=== PATIENT | male | born 1950 | race Hispanic/Latino ===

== ENCOUNTER 2024-03-05 05:30 | Observation (INO) | payer OTHER ==
[2024-02-29 14:40] LABS: ALBUMIN 3.6 g/dL (3.5-5.0)
[2024-02-29 15:35] VITALS: BP 180/90; PULSE 74; RESP 19
[2024-03-05] VITALS (24 sets, daily range): BP systolic 92–139; BP diastolic 42–97; PULSE 71–102; RESP 14–20; O2SAT 98
[~2024-03-05] VITALS: Ht 160 cm; Wt 85.7 kg
[~2024-03-05 05:30] MED LIST: AEC81 PO; ATOR20TA65 PO; GABA-529 PO; IRBE75TA16 PO; MELO-106 PO; METF-444 PO; TAMS-1 PO; TYLENOL ARTHRITIS PO; VITAMIN D PO
[2024-03-05] MEDS: ACETAMINOPHEN 1,000 MG/100 ML VIAL IV ONE (06:39)
[2024-03-05] MEDS: FAMOTIDINE 20MG VIAL IV ONE (06:39)
[2024-03-05] MEDS ORDERED: ROPIVACAINE 0.5% 5MG/ML 30ML ONE ×2 (06:41→07:27)
[2024-03-05] MEDS ORDERED: PROPOFOL 10 MG/ML 20ML VIAL IV ONE (06:48)
[2024-03-05] MEDS: 0.9%NACL 1000ML 1,000 ML IV ONE (06:48)
[2024-03-05] MEDS ORDERED: ROCURONIUM BROMIDE 10MG/1ML 5ML VL ONE (06:48)
[2024-03-05] MEDS: CEFAZOLIN SODIUM 2 GM VIAL ONE (06:48)
[2024-03-05] MEDS ORDERED: LIDOCAINE PF 100MG/5ML (2%) SYRINGE 5ML ONE (06:48)
[2024-03-05] MEDS ORDERED: FENTANYL CITRATE PF 50 MCG/1 ML 2ML VIAL ONE (06:49)
[2024-03-05] MEDS: CEFAZOLIN SODIUM 2 GM VIAL IVPB ONE (07:14)
[2024-03-05] MEDS ORDERED: DEXAMETHASONE SOD PHOSPHATE 10MG/ML 1ML VIAL ONE (07:15)
[2024-03-05] MEDS ORDERED: ONDANSETRON 4MG INJ ONE (07:15)
[2024-03-05] MEDS ORDERED: TRANEXAMIC ACID 1000MG/10ML ONE (07:26)
[2024-03-05] MEDS ORDERED: KETOROLAC 30MG VIAL (30MG/ML) ONE (07:27)
[2024-03-05] MEDS ORDERED: PHENYLEPHRINE HCL 10 MG/ML 1ML VIAL IV ONE (07:30)
[2024-03-05] MEDS ORDERED: EPHEDRINE SULFATE 50 MG/ML AMPULE ONE (07:43)
[2024-03-05] MEDS ORDERED: NEOSTIGMINE METHYLSULFATE 1MG/ML IV ONE (08:50)
[2024-03-05] MEDS ORDERED: GLYCOPYRROLATE 0.2 MG/ML 5 ML VIAL ONE (08:50)
[2024-03-05] MEDS ORDERED: POTASSIUM CHLORIDE 10% ELIXIR 20 MEQ/15 ML UDCUP PO PRN (09:30)
[2024-03-05] MEDS: 0.9%NACL 1000ML 1,000 ML IV SCH (09:30)
[2024-03-05] MEDS ORDERED: FERROUS FUMARATE 324 MG TABLET PO PRN (09:30)
[2024-03-05] MEDS ORDERED: POTASSIUM CHLORIDE 20MEQ/100ML 100 ML IV PRN (09:30)
[2024-03-05] MEDS ORDERED: KCL 20 MEQ ERTAB PO PRN (09:30)
[2024-03-05] MEDS ORDERED: ONDANSETRON 4MG INJ IVP PRN (09:30)
[2024-03-05] MEDS ORDERED: DiphenhydrAMINE HCL 50 MG/ML VIAL IVP PRN (09:30)
[2024-03-05] MEDS ORDERED: CALCIUM CARB 500MG PO PRN (09:30)
[2024-03-05] MEDS: KETOROLAC 15MG/ML VIAL (15MG/ML) IV SCH (10:35)
[2024-03-05] MEDS: KETOROLAC 15MG/ML VIAL (15MG/ML) ONE (10:35)
[2024-03-05] MEDS: GABAPENTIN 100 MG CAPSULE PO SCH (14:00)
[2024-03-05] MEDS: CEFAZOLIN SODIUM 2 GM VIAL IVPB SCH (18:36)
[2024-03-05] MEDS: INSULIN HUMULIN R 100 UNIT/ML 3ML SQ SCH (18:38)
[2024-03-05] MEDS: DOCUSATE SODIUM 100 MG CAP PO SCH (21:28)
[2024-03-06] VITALS: BP 124/72; PULSE 77; RESP 20
[2024-03-06] MEDS: HYDROCODONE/ACETAMINOPHEN 5/325 MG TAB PO PRN (00:17)
[2024-03-06] MEDS: CEFAZOLIN SODIUM 2 GM VIAL ONE (02:17)
[2024-03-06 04:00] VITALS: BP 115/62; PULSE 74; RESP 20
[2024-03-06 05:56] LABS: HEMATOCRIT 30.9 % (42-54); MEAN CORPUSCULAR HEMOGLOBIN 32.6 pg (27.0-33.0); MEAN CORPUSCULAR HGB CONC 33.3 g/dL (32.0-36.0); MEAN CORPUSCULAR VOLUME 97.8 fL (79-99); RED BLOOD CELL COUNT(AUTO) 3.16 MIL/uL (4.50-6.20); RED CELL DISTRIBUTION WIDTH 11.9 % (11.0-15.5); WHITE BLOOD COUNT (AUTO) 9.4 K/uL (4.8-10.8)
[2024-03-06 06:14] LABS: POTASSIUM 4.2 mmol/L (3.5-5.1)
[2024-03-06 08:00] VITALS: BP 133/71; PULSE 78; RESP 16
[2024-03-06] MEDS ORDERED: GABAPENTIN 100 MG CAPSULE PO SCH (09:00)
[2024-03-06] MEDS: POLYETHYLENE GLYCOL 3350 17 GM POWD.PACK PO SCH (09:14)
[2024-03-06] MEDS: ASPIRIN 325MG EC TAB PO SCH (09:14)
[2024-03-06] MEDS: METFORMIN HCL 500 MG TABLET PO SCH (09:15)
[2024-03-06] MEDS: IRBESARTAN 75 MG PO SCH (09:25)
[2024-03-06] MEDS: VITAMIN D 2000 UNIT PO SCH (09:25)
[2024-03-06 12:00] VITALS: BP 110/56; PULSE 77; RESP 17
[2024-03-06] MEDS: CYCLOBENZAPRINE HCL 10 MG TABLET PO PRN (14:10)
[2024-03-06 16:00] VITALS: BP 142/76; PULSE 84; RESP 16
[2024-03-06] MEDS: TRAMADOL HCL 50 MG TABLET PO PRN (16:28)
[2024-03-06] MEDS: TAMSULOSIN HCL 0.4 MG CAP.ER.24H PO SCH (19:55)
[2024-03-06] MEDS: ATORVASTATIN 20 MG TABLET PO SCH (19:55)
[2024-03-06 20:00] VITALS: BP 122/66; PULSE 74; RESP 17; O2SAT 98
[2024-03-07] VITALS: BP 123/66; PULSE 90; RESP 18
[2024-03-07 04:00] VITALS: BP 118/62; PULSE 89; RESP 18
[2024-03-07 08:00] VITALS: BP 111/81; PULSE 86; RESP 18; O2SAT 97
[2024-03-07] MEDS: KETOROLAC 15MG/ML VIAL (15MG/ML) IV PRN (09:51)
[2024-03-07] MEDS ORDERED: CYCL-309 PO (15:06)
[2024-03-07] MEDS ORDERED: DOCU-116 PO (15:06)
[2024-03-07] MEDS ORDERED: ASPI-891 PO (15:06)
[2024-03-07] MEDS ORDERED: HYDR-4060 PO (15:06)
[2024-03-08] MEDS ORDERED: BISACODYL 10 MG SUPP.RECT RC PRN (09:30)
== END 2024-03-07 16:00 | disposition home or self-care (01) ==
LOC: DAH 05:30 → DAHIP 05:31 → DAH 05:31 → 4BH 11:15
PROVIDERS: ADMIT Student in an Organized Health Care Education/Training Program; ATTEND Student in an Organized Health Care Education/Training Program
DX: M17.11 Unilateral primary osteoarthritis, right knee (principal); D62 Acute posthemorrhagic anemia; E11.9 Type 2 diabetes mellitus without complications; I10 Essential (primary) hypertension; E78.5 Hyperlipidemia, unspecified; N40.0 Benign prostatic hyperplasia without lower urinary tract symptoms; E66.9 Obesity, unspecified; E78.00 Pure hypercholesterolemia, unspecified; Z79.899 Other long term (current) drug therapy; Z96.653 Presence of artificial knee joint, bilateral
CPT/HCPCS: 82040; 84134; 86140; 36415 ×2; 87641; 96365; 96375; 64447; 27447; 82948 ×12; 73560; 97161; 97116 ×5; 97530 ×6; 96376 ×2; 96366; 80048; 85027; J1815; G0378 ×50; A4663; A4215 ×2; J3490 ×6; J3010; J1100; J7030; J2001; J2704; J2405; J1885 ×6; J2710; J2795 ×3; J2371; J0690 ×4; C1713 ×2; G0168; C1776 ×2; A4649 ×2; A4930 ×2; A6255; A5120; A4223; A4222; A4221